=== PATIENT | male | born 2000 | race Caucasian/White ===

== ENCOUNTER 2018-04-27 10:12 | Emergency (ER) | payer OTHER, SELFPAY ==
[2018-04-27 10:24] VITALS: BP 137/59; PULSE 90; RESP 16; TEMP 37; O2SAT 97
--- NOTE | 2018-04-27 11:37 | ED.GENADUL_ITS ---
Discharge Plan Disposition Patient Disposition: HOME Discharge Details Chief Complaint: Laceration Primary Care Provider: Kamran Maxwell ED Provider: Tima Baker Home Meds and New Rx's Prescriptions: No Action triamcinolone acetonide 15 GM ointment 1 applic Topical TID Qty: 40 RF: 0 Discharge Data Discharge Date/Time-TO BE ENTERED AT DEPARTURE: 04/27/18 12:14 Medical Decision Making Hand laceration to left hand in between second and third digit and web space. Approximately 2 cm laceration into the subcutaneous tissue without evidence of neurovascular damage. Patient has two-point discrimination, normal tendon exam, normal sensation, otherwise unremarkable exam. Verbal consent for wound repair was given. 2 mL's of 1% lidocaine. 2 4-0 Ethilon sutures were placed with simple interrupted technique after thorough irrigation and visualization of wound down to base in bloodless field. No evidence of foreign body noted. Wound covered with bacitracin and sterile gauze. Patient encouraged to keep wound clean and dry and watch for signs of infection and return if these occur otherwise to return for suture removal. TD given. After discussion of diagnosis and plan of care patient has no further needs, questions, or concerns and states clear understanding to return to the emergency department for any worsening symptoms. HPI General Mode of arrival: ambulatory . Date/Time Provider Initiated Documentation: 04/27/18 10:36 . Limitations to Documentation: no limitations . Information obtained by: patient and RN notes reviewed . History of Present Illness 17 year old M presents to the emergency department with the chief complaint of Hand laceration, described as mild, with intensity rated at 3. Quality is described as sharp, and is localized to the left and upper extremity. Patient started experiencing this hour(s) (1) and it has been constant. Patient did receive the following treatments prior to arrival, none Related Data Home Medications Medication Instructions Recorded Confirmed triamcinolone acetonide 1 applic TOPICAL TID #40 gm 05/21/17 04/27/18 Previous Rx's Medication Instructions Recorded triamcinolone acetonide 1 applic TOPICAL TID #40 gm 05/21/17 Allergies Allergy/AdvReac Type Severity Reaction Status Date / Time No Known Allergies Allergy Unverified 04/27/18 10:26 General Stated Complaint: Laceration NAZANIN: 4 Review of Systems Cardiovascular Denies syncope and Denies lightheadedness Musculoskeletal Denies deformity, Denies limited range of motion and Denies numbness Integumentary/Breasts Reports as per HPI Neurologic Denies syncope, Denies numbness and Denies paresthesias [facility] Medical History BMI (body mass index), pediatric, > 99% for age Fracture of thumb, left, closed Surgical History Orchiectomy, Simple Bilateral Family History Other Diabetes Personal history of malignant neoplasm Asthma Social History Smoking/Tobacco Use Status: Never Exam Const General: cooperative and no acute distress Orientation: alert, awake and oriented x3 Limitations: mental status not altered Resp Effort & Inspection: normal respiratory effort and able to speak in complete sentences Cardio Rate: regular rate Rhythm: regular rhythm Neuro General: alert, awake, oriented x3, gait normal, tone normal, moves all extremities, normal light touch, pain and propioception and no focal motor deficits Motor: no movement abnormalities noted Sensory Exam: no sensory deficits noted Extrem General: normal exam except as noted Left upper extremity: hand Details: normal capillary refill, neuromotor exam normal, neurosensory exam normal, tendon exam normal, normal ROM of fingers and laceration (2 cm laceration in between the index and middle finger) Course Vital Signs Temperature 37 C 04/27/18 10:24 Pulse 90 04/27/18 10:24 Respiratory Rate 16 04/27/18 10:24 Blood Pressure 137/59 L 04/27/18 10:24 Pulse Oximetry 97 04/27/18 10:24 Temperature 37 C 04/27/18 10:24 Temperature Source Skin 04/27/18 10:24 Pulse 90 04/27/18 10:24 Respiratory Rate 16 04/27/18 10:24 Respiratory Effort Non-Labored 04/27/18 10:24 Blood Pressure 137/59 L 04/27/18 10:24 Blood Pressure Position Sitting 04/27/18 10:24 Pulse Oximetry 97 04/27/18 10:24 Oxygen Delivery Method Room Air 04/27/18 10:24 Oxygen Flow Rate 0 04/27/18 10:24 Pain Level 3 04/27/18 10:24
[2018-04-27] MEDS: Tetanus & Diphtheria Tox,ADULT 0.5 ML VIAL IM (12:05)
== END 2018-04-27 12:14 | disposition home or self-care (01) ==
PROVIDERS: Emergency Provider Nurse Practitioner Family; PCP Pediatrics
DX: S61.422A Laceration with foreign body of left hand, initial encounter (principal); W26.8XXA Contact with other sharp object(s), not elsewhere classified, initial encounter
CPT/HCPCS: 12001; 90471

== ENCOUNTER 2018-05-06 17:01 | Emergency (ER) | payer SELFPAY ==
[2018-05-06 17:04] VITALS: BP 157/79; PULSE 67; RESP 16; TEMP 37; O2SAT 96
[2018-05-06 17:25] VITALS: BP 157/79; PULSE 67; RESP 16; TEMP 37; O2SAT 96
--- NOTE | 2018-05-06 17:55 | ED.GENADUL_ITS ---
Discharge Plan Disposition Patient Disposition: HOME Condition: Stable Discharge Details Chief Complaint: SutureRem Clinical Impression: Encounter for removal of sutures Primary Care Provider: Kamran Maxwell ED Provider: Yovani Gonzalez Home Meds and New Rx's Prescriptions: No Action No Known Home Meds RF: 0 Discharge Instructions Additional Instructions: 1. Drink plenty of fluids. 2. Continue all medications as prescribed. 3. Acetaminophen 1000mg every 4 hours (up to 5 time a day) and/or ibuprofen 600mg every 6 hours as needed for fever or pain. 4. Bacitracin to wound edges. Return to the Emergency Department (ED) if your condition worsens, does not improve as expected, or for ANY other concerns. Specifically, return if you have new or uncontrolled pain, worsening fever, difficulty breathing, vomiting, or are unable to drink fluids. Discharge Data Discharge Date/Time-TO BE ENTERED AT DEPARTURE: 05/06/18 17:30 Medical Decision Making 1-year-old presents for reevaluation of a left proximal ulnar index finger laceration. Wound is healed well with well approximated wound edges and no evidence of infection or dehiscence. However, patient has had mild recurrence of pain at his medial distal index fingertip with finger flexion which has persisted. He otherwise denies any sensory loss or motor dysfunction distally. Sutures removed without complication. Discharged with plan for regular bacitracin, OTC analgesia, and follow-up as needed. Pt evaluated immediately prior to discharge with improved symptoms, normal vital signs, and tolerating PO. The patient feels appropriate for discharge home. Discussed clinical/diagnostic findings. Discharged with a clear plan for outpatient follow up. Given usual and customary return instructions prior to discharge. Medical Records Medical records reviewed: Yes I reviewed the patient's medical records. 17-year-old gentleman with an unremarkable past medical history. Evaluated on 04/27/18 for a laceration to his medial proximal left index finger. Management included 2 simple interrupted nylon sutures with good wound edge approximation. Return for reevaluation and suture removal. He has noted good healing from the wound itself but persistent pain at the medial index finger distal tip with finger flexion. She is no erythema, fever/chills, or atypical finger swelling. HPI General Date/Time Provider Initiated Documentation: 05/06/18 17:20 . Related Data Home Medications Medication Instructions Recorded Confirmed Unknown [No Known Home Meds] 05/06/18 05/06/18 Allergies Allergy/AdvReac Type Severity Reaction Status Date / Time No Known Allergies Allergy Unverified 05/06/18 17:07 General Stated Complaint: SutureRem NAZANIN: 5 Review of Systems Review of Systems All systems reviewed & are unremarkable except as noted in HPI and below PFSH Social History Smoking and Tabacco status: Never Exam Narrative Exam Narrative: Nursing note and vital signs have been reviewed and noted. GENERAL: alert, active, no acute distress, well -hydrated, well-nourished HEENT: atraumatic/normocephalic, PERRLA, EOMI, conjunctiva clear, external ears/canals normal, nasal mucosa normal NECK: supple, full range of motion CARDIOVASCULAR: nl pulses, no edema PULMONARY: nl effort, no audible wheezing or stridor ABDOMEN: non-distended EXTREMITY: normal muscle tone, all joints with FROM, no deformity NUERO: normal mentation, moving all extremities, normal stance and gait, PSYCH: alert and oriented SKIN: Well-healed laceration of the ulnar aspect of the proximal index finger with well approximated wound edges. There are 2 simple interrupted nylon sutures in Course Vital Signs Temperature 98.6 F 05/06/18 17:04 Pulse 67 05/06/18 17:04 Respiratory Rate 16 05/06/18 17:04 Blood Pressure 157/79 H 05/06/18 17:04 Pulse Oximetry 96 05/06/18 17:04 Temperature 98.6 F 05/06/18 17:25 Temperature Source Skin 05/06/18 17:04 Pulse 67 05/06/18 17:25 Respiratory Rate 16 05/06/18 17:25 Respiratory Effort Non-Labored 05/06/18 17:04 Blood Pressure 157/79 H 05/06/18 17:25 Blood Pressure Position Sitting 05/06/18 17:04 Pulse Oximetry 96 05/06/18 17:25 Pain Level 1 05/06/18 17:25 Procedures Other Description: Suture removal 2 simple interrupted nylon sutures removed using forceps and a #11 scalpel. Patient tolerated procedure with no complications.
== END 2018-05-06 17:30 | disposition home or self-care (01) ==
LOC: ER 17:31
PROVIDERS: Emergency Provider Emergency Medicine; PCP Pediatrics
DX: S65.51 Laceration of blood vessel of other and unspecified finger (principal); X58.XXXD Exposure to other specified factors, subsequent encounter; Z48.02 Encounter for removal of sutures

== ENCOUNTER 2022-05-17 01:48 | Outpatient (CLI) | payer MEDICAID, SELFPAY ==
[2022-05-17 13:10] LABS: Hemoglobin A1C 5.6 % (<5.7)
[2022-05-17 13:39] LABS: Calculated LDL 77 mg/dL (<100); Cholesterol 148 mg/dL (<200); Estimated GFR 108.46 (mL/min/1.73m2); HDL Cholesterol 38 mg/dL (40-60); Potassium 4.4 mmol/L (3.5-5.1); Triglyceride 165 mg/dL (<150)
== END 2022-05-17 01:49 | disposition home or self-care (01) ==
LOC: LOS 01:49
PROVIDERS: PCP Nurse Practitioner Family; Visit Provider Nurse Practitioner Family
DX: I10 Essential (primary) hypertension (principal); E66.8 Other obesity; Z68.36 Body mass index [BMI] 36.0-36.9, adult; Z13.1 Encounter for screening for diabetes mellitus
CPT/HCPCS: 36415; 80061; 82565; 83036; 84132